=== PATIENT | male | born 1980 | race Caucasian/White ===

== ENCOUNTER → 2017-02-07 | Outpatient (CLI) | payer BC ==
[~2017-02-07] MED LIST: MULT-506 PO; OMEG10007 PO; RED600TA PO
--- NOTE | 2017-02-07 16:38 | DIAGNOSTIC IMAGING REPORT ---
LUMBAR SPINE 5 VIEWS HISTORY: Low back pain. COMPARISON: None. FINDINGS: There is no fracture. No subluxation. Mild disc space narrowing within the T12-L1 and L6 S1. There are 6 lumbar-type vertebral bodies. IMPRESSION: No fracture or subluxation within the lumbar spine. Mild degenerative changes as described above. Electronically signed by: Efrain Son M.D. 02/07/2017 4:36 PM Dictated Date/Time: 02/07/2017 4:35 PM
--- NOTE | 2017-02-07 16:38 | DIAGNOSTIC IMAGING REPORT ---
RIGHT FOOT MIN 3 VIEWS ROUTINE CLINICAL HISTORY: RIGHT FOOT INJURY Right trauma. Pain. COMPARISON: None. DISCUSSION: The bones and joint spaces appear intact. There is no evidence of fracture, dislocation or bony disease. Mild soft tissue edema overlying the fifth metatarsophalangeal complex. IMPRESSION: Mild soft tissue edema. No acute bony abnormality. Electronically signed by: Aaron Vaz M.D. 02/07/2017 4:36 PM Dictated Date/Time: 02/07/2017 4:35 PM
== END | disposition home or self-care (01) ==
LOC: C.RAD1850 16:15
PROVIDERS: ATTEND Internal Medicine
DX: R29.898 Other symptoms and signs involving the musculoskeletal system (principal); S99.921A Unspecified injury of right foot, initial encounter; X58.XXXA Exposure to other specified factors, initial encounter